=== PATIENT | male | born 1955 | race Caucasian/White ===

== ENCOUNTER 2020-10-06 10:43 | Day surgery (SDC) | payer MEDICARE ==
[~2020-10-06] VITALS: Ht 180.3 cm; Wt 122.4 kg
[2020-10-06] MEDS ORDERED: dextrose ORAL solution 15 GM/59 ML bottle PO PRN ×2 (11:15)
[2020-10-06] MEDS ORDERED: MESSAGE TO PHARMACY PO ONE (11:15)
[2020-10-06] MEDS ORDERED: diphenhydrAMINE 25mg capsule PO PRN (11:15)
[2020-10-06] MEDS ORDERED: normal saline 1,000 ML IV SCH (11:15)
[2020-10-06] MEDS ORDERED: LORazepam 0.5 MG tablet PO PRN (11:15)
[2020-10-06] MEDS ORDERED: glucagon, human recombinant 1mg kit SUBCUT PRN (11:15)
[2020-10-06] MEDS ORDERED: dextrose 50%-water 50ml dispensing syringe IV PRN ×2 (11:15)
[2020-10-06] MEDS ORDERED: nitroGLYCERIN 0.4mg SUBLingual tab SL PRN (11:15)
[2020-10-06] MEDS ORDERED: insulin regular, human U-100 3ml vial - multi-dose SQ SCH (11:15)
[2020-10-06] MEDS ORDERED: insulin Lispro (HumaLOG) vial - multi-dose SQ SCH (11:15)
[2020-10-06 11:34] VITALS: BP 146/65
[2020-10-06] MEDS ORDERED: GLIP5TAB13 PO (11:43)
[2020-10-06] MEDS ORDERED: ALLO100T PO (11:43)
[2020-10-06] MEDS ORDERED: LISI10TA4 PO (11:43)
[2020-10-06] MEDS ORDERED: METO50TA16 PO (11:43)
[2020-10-06] MEDS ORDERED: METF-438 PO (11:43)
[2020-10-06] MEDS ORDERED: ATOR-2 PO (11:43)
[2020-10-06 11:51] LABS: BASOPHILS # (AUTO) 0.1 X10'3 (0-0.2); BASOPHILS % (AUTO) 0.9 % (0-1); EOSINOPHILS # (AUTO) 0.3 X10'3 (0-0.9); HEMOGLOBIN 11.5 g/dl (14.0-17.9); LYMPHOCYTES # (AUTO) 1.4 X10'3 (1.1-4.8); LYMPHOCYTES % (AUTO) 24.9 % (21-51); MEAN CORPUSCULAR HEMOGLOBIN 32.1 PG (27.0-31.0); MEAN CORPUSCULAR HGB CONC 33.8 g/dL (33.0-36.5); MEAN PLATELET VOLUME 7.8 FL (7.4-10.4); MONOCYTES # (AUTO) 0.5 X10'3 (0-0.9); MONOCYTES % (AUTO) 8.6 % (2-12); NEUTROPHILS # (AUTO) 3.3 X10'3 (1.8-7.7); NEUTROPHILS % (AUTO) 60.6 % (42-75); PLATELET COUNT 281 X10'3 (140-440); RED BLOOD COUNT 3.58 X10'6 (4.70-6.10); RED CELL DISTRIBUTION WIDTH 13.6 % (11.5-14.5); WHITE BLOOD COUNT 5.5 X10'3 (4.5-11.0)
[2020-10-06 11:58] LABS: ALBUMIN 3.9 G/DL (3.4-5.0); ANION GAP 11 (8-16); BLOOD UREA NITROGEN 22 MG/DL (7-18); BUN/CREATININE RATIO 18.8 (5.4-32.0); CHLORIDE 106 MMOL/L (99-107); CREATININE 1.17 MG/DL (0.60-1.10); GLUCOSE 206 MG/DL (70-104); POTASSIUM 4.2 MMOL/L (3.5-5.1); SODIUM 139 MMOL/L (135-145); eGFR 62 ML/MIN
[2020-10-06 12:07] LABS: HEMOGLOBIN A1C 7.2 % (4.5-6.2)
[2020-10-06 12:08] LABS: PARTIAL THROMBOPLASTIN TIME 23 SECONDS (22-32)
[2020-10-06] MEDS ORDERED: iohexol 350 MG/ML 50ML vial IV ONE (13:30)
[2020-10-06] MEDS ORDERED: LIDOcaine 1% (10mg/ml)w/preservative injection 20ml MDV ONE (13:30)
[2020-10-06] MEDS ORDERED: fentaNYL/PF 50MCG/1 ML 2ML syringe ONE (13:30)
[2020-10-06] MEDS ORDERED: iohexol 350MG/ML 100ml bottle IV ONE (13:30)
[2020-10-06] MEDS ORDERED: midazolam 2 mg/2 ml injection ONE ×2 (13:30→13:51)
[2020-10-06 14:28] VITALS: BP 119/60
[2020-10-06] MEDS ORDERED: OXAZEpam 15mg capsule PO PRN (15:05)
[2020-10-06] MEDS ORDERED: HYDROcodone/acetaminophen 10/325mg tab PO PRN (15:05)
[2020-10-06] MEDS ORDERED: HYDROcodone/acetaminophen 5mg/325mg tablet PO PRN (15:05)
[2020-10-06] MEDS ORDERED: normal saline 1000ml 1,000 ML IV SCH (15:05)
[2020-10-06] MEDS ORDERED: ondansetron/PF 4mg/2ml inj IV PRN (15:05)
[2020-10-06] MEDS ORDERED: proCHLORperazine 10 MG/2 ml inj IV PRN (15:05)
[2020-10-06] MEDS ORDERED: acetaminophen 325mg tablet PO PRN (15:30)
[2020-10-06] MEDS ORDERED: insulin glargine (Lantus) pen - multi-dose SQ SCH (21:00)
== END 2020-10-06 20:10 | disposition home or self-care (01) ==
LOC: SSTAY O 10:43
PROVIDERS: ATTEND Internal Medicine Cardiovascular Disease
DX: I25.118 Atherosclerotic heart disease of native coronary artery with other forms of angina pectoris (principal); I10 Essential (primary) hypertension; E78.5 Hyperlipidemia, unspecified; E11.9 Type 2 diabetes mellitus without complications; M19.90 Unspecified osteoarthritis, unspecified site; G47.33 Obstructive sleep apnea (adult) (pediatric); E66.9 Obesity, unspecified; Z68.35 Body mass index [BMI] 35.0-35.9, adult; Z87.891 Personal history of nicotine dependence; Z79.899 Other long term (current) drug therapy; Z98.84 Bariatric surgery status; Z79.01 Long term (current) use of anticoagulants
CPT/HCPCS: 36415; 71046; 80048; 82948; 83036; 85025; 85610; 85730; 93005; 93458; 99152; 99153; C1760; C1769; J1644; J1815; J2001; J2250; J3010; J7030; Q0163; Q9967; A4620; A6258

== ENCOUNTER 2021-05-23 06:20 | Day surgery (SDC) | payer MEDICARE ==
[2021-05-23] VITALS (9 sets, daily range): BP systolic 121–141; BP diastolic 56–77
[~2021-05-23] VITALS: Ht 180.3 cm; Wt 123.4 kg
[~2021-05-23 06:20] MED LIST: ALLO100T PO; ATOR-2 PO; GLIP5TAB13 PO; LISI10TA27 PO; METF-438 PO; METO50TA16 PO
[2021-05-23] MEDS ORDERED: normal saline 1000ml 1,000 ML IV PRN (06:45)
--- NOTE | 2021-05-23 07:06 | NUR ---
Pt arrived with PICC line, right upper arm. DRSG CD&I, no s/s of infection. New order given to use PICC line for procedure per LEEROY Eng.
[2021-05-23] MEDS ORDERED: [UNRECOGNIZED DRUG - CODE] PO (07:16)
[2021-05-23] MEDS ORDERED: PIOG30TA71 PO (07:16)
[2021-05-23] MEDS ORDERED: CETI-90 PO (07:16)
--- NOTE | 2021-05-23 08:15 | NUR ---
Problems reprioritized. Patient report given, questions answered & plan of care reviewed with Suhail GALVAN.
[2021-05-23] MEDS ORDERED: midazolam 1 mg/ML 2ml injection ONE ×2 (08:45→09:41)
[2021-05-23] MEDS ORDERED: LIDOcaine 1%/PF 5ML 10 MG/ML VIAL ONE (08:45)
[2021-05-23] MEDS ORDERED: fentaNYL/PF 50MCG/1 ML 2ML syringe ONE ×2 (08:46→10:07)
[2021-05-23] MEDS ORDERED: iohexol 300mg/ml 100ml inj. ONE (08:46)
[2021-05-23] MEDS ORDERED: heparin 1,000 UNITS/NS 500ml 500 ML ONE (08:46)
[2021-05-23 09:04] LABS: ALBUMIN 3.9 G/DL (3.4-5.0); ANION GAP 12 (8-16); BLOOD UREA NITROGEN 29 MG/DL (7-18); BUN/CREATININE RATIO 19.1 (5.4-32.0); CALCIUM 8.9 MG/DL (8.5-10.1); CHLORIDE 110 MMOL/L (99-107); CREATININE 1.52 MG/DL (0.60-1.10); GLUCOSE 87 MG/DL (70-104); POTASSIUM 4.9 MMOL/L (3.5-5.1); SODIUM 144 MMOL/L (135-145); TOTAL CARBON DIOXIDE 22.2 MMOL/L (24-32); eGFR 46 ML/MIN
[2021-05-23] MEDS ORDERED: heparin 1,000unit/ml 10ml vial 10 ML ONE (10:12)
[2021-05-23] MEDS ORDERED: normal saline 1000ml 1,000 ML IV SCH (11:25)
== END 2021-05-23 14:00 | disposition home or self-care (01) ==
LOC: SSTAY O 06:20
PROVIDERS: ATTEND Radiology Vascular & Interventional Radiology
DX: E11.51 Type 2 diabetes mellitus with diabetic peripheral angiopathy without gangrene (principal); I70.213 Atherosclerosis of native arteries of extremities with intermittent claudication, bilateral legs; E11.69 Type 2 diabetes mellitus with other specified complication; M86.9 Osteomyelitis, unspecified; I10 Essential (primary) hypertension; Z98.84 Bariatric surgery status; Z98.890 Other specified postprocedural states; Z90.49 Acquired absence of other specified parts of digestive tract; Z87.442 Personal history of urinary calculi; Z98.52 Vasectomy status; Z88.2 Allergy status to sulfonamides; Z88.8 Allergy status to other drugs, medicaments and biological substances; Z79.84 Long term (current) use of oral hypoglycemic drugs; Z79.899 Other long term (current) drug therapy
CPT/HCPCS: 36415; 37224; 75630; 80048; 99152; 99153; C1725; C1760; C1769; C1894; J1644; J2250; J3010; J7030; Q9967; A6213

== ENCOUNTER 2021-06-22 06:50 | Day surgery (SDC) | payer MEDICARE ==
[2021-06-21 11:38] LABS: BASOPHILS # (AUTO) 0.1 X10'3 (0-0.2); BASOPHILS % (AUTO) 0.9 % (0-1); EOSINOPHILS # (AUTO) 0.3 X10'3 (0-0.9); HEMATOCRIT 37.1 % (42.0-52.0); HEMOGLOBIN 12.5 g/dl (14.0-17.9); LYMPHOCYTES # (AUTO) 1.3 X10'3 (1.1-4.8); LYMPHOCYTES % (AUTO) 20.1 % (21-51); MEAN CORPUSCULAR HEMOGLOBIN 31.7 PG (27.0-31.0); MEAN CORPUSCULAR HGB CONC 33.7 g/dL (33.0-36.5); MEAN CORPUSCULAR VOLUME 93.9 FL (78-98); MEAN PLATELET VOLUME 8.2 FL (7.4-10.4); MONOCYTES # (AUTO) 0.5 X10'3 (0-0.9); MONOCYTES % (AUTO) 7.8 % (2-12); NEUTROPHILS # (AUTO) 4.2 X10'3 (1.8-7.7); NEUTROPHILS % (AUTO) 66.2 % (42-75); PLATELET COUNT 230 X10'3 (140-440); RED BLOOD COUNT 3.95 X10'6 (4.70-6.10); RED CELL DISTRIBUTION WIDTH 14.6 % (11.5-14.5); WHITE BLOOD COUNT 6.3 X10'3 (4.5-11.0)
[2021-06-21 11:49] LABS: PARTIAL THROMBOPLASTIN TIME 25 SECONDS (22-32)
[2021-06-21 11:54] LABS: ALBUMIN 3.9 G/DL (3.4-5.0); ANION GAP 12 (8-16); BLOOD UREA NITROGEN 39 MG/DL (7-18); BUN/CREATININE RATIO 25.5 (5.4-32.0); CALCIUM 9.1 MG/DL (8.5-10.1); CHLORIDE 107 MMOL/L (99-107); CREATININE 1.53 MG/DL (0.60-1.10); GLUCOSE 174 MG/DL (70-104); POTASSIUM 5.1 MMOL/L (3.5-5.1); SODIUM 140 MMOL/L (135-145); TOTAL CARBON DIOXIDE 20.6 MMOL/L (24-32); eGFR 46 ML/MIN
[~2021-06-22] VITALS: Ht 180.3 cm; Wt 124.0 kg
[2021-06-22] VITALS (13 sets, daily range): BP systolic 126–157; BP diastolic 50–69
[~2021-06-22 06:50] MED LIST changes: +CETI-90 PO; +PIOG30TA71 PO; +[UNRECOGNIZED DRUG - CODE] PO
[2021-06-22] MEDS ORDERED: diphenhydrAMINE 25mg capsule PO PRN (07:20)
[2021-06-22] MEDS ORDERED: sodium bicarbonate (8.4%) inj. 150 ML in dextrose 5%-water 1,000 ML IV ONE ×2 (07:20→11:05)
[2021-06-22] MEDS ORDERED: LORazepam 0.5 MG tablet PO PRN (07:20)
[2021-06-22] MEDS: acetylcysteine 200 MG/ml 4ml vial PO PRN ×2 (07:46→11:22)
[2021-06-22] MEDS ORDERED: NITR0.4T51 SL (08:03)
[2021-06-22] MEDS ORDERED: CLOP75TA34 PO (08:03)
[2021-06-22] MEDS ORDERED: OMEG1CAP61 PO (08:03)
[2021-06-22] MEDS ORDERED: GLUC15006 PO (08:03)
[2021-06-22] MEDS ORDERED: TURM500C4 PO (08:03)
[2021-06-22] MEDS ORDERED: CYCL-1 PO (08:03)
[2021-06-22] MEDS ORDERED: NITR1PAT63 TD (08:03)
[2021-06-22] MEDS ORDERED: fentaNYL/PF 50MCG/1 ML 2ML syringe ONE (08:20)
[2021-06-22] MEDS ORDERED: midazolam 1 mg/ML 2ml injection ONE (08:20)
[2021-06-22] MEDS ORDERED: LIDOcaine 1% (10mg/ml)w/preservative injection 20ml MDV ONE (08:20)
[2021-06-22] MEDS ORDERED: iohexol 350 MG/ML 50ML vial IV ONE (08:20)
[2021-06-22] MEDS ORDERED: iohexol 350MG/ML 100ml bottle IV ONE (08:21)
[2021-06-22] MEDS ORDERED: iohexol 350 MG/1 ML 200ml bottle ONE (08:39)
[2021-06-22] MEDS ORDERED: nitroGLYCERIN-Tridil 50MG/D5W 250 ML IV ONE (08:41)
[2021-06-22] MEDS ORDERED: heparin 1,000unit/ml 10ml vial 10 ML ONE (08:41)
[2021-06-22] MEDS ORDERED: verapamil 2.5 mg/ml inj IV ONE (08:41)
[2021-06-22] MEDS ORDERED: heparin 25,000 UNIT/250ml bag 250 ML IV ONE (08:41)
[2021-06-22] MEDS ORDERED: clopidogrel 300mg tablet ONE ×2 (10:20→10:23)
== END 2021-06-22 19:00 | disposition home or self-care (01) ==
LOC: SSTAY O 06:50
PROVIDERS: ATTEND Internal Medicine Cardiovascular Disease
DX: I25.119 Atherosclerotic heart disease of native coronary artery with unspecified angina pectoris (principal); I25.2 Old myocardial infarction; I10 Essential (primary) hypertension; E78.5 Hyperlipidemia, unspecified; E11.40 Type 2 diabetes mellitus with diabetic neuropathy, unspecified; M85.80 Other specified disorders of bone density and structure, unspecified site; E66.9 Obesity, unspecified; Z68.37 Body mass index [BMI] 37.0-37.9, adult; F17.211 Nicotine dependence, cigarettes, in remission; Z79.84 Long term (current) use of oral hypoglycemic drugs; Z79.899 Other long term (current) drug therapy; Z79.01 Long term (current) use of anticoagulants; Z98.890 Other specified postprocedural states; Z98.84 Bariatric surgery status; Z95.5 Presence of coronary angioplasty implant and graft; Z98.52 Vasectomy status; Z87.442 Personal history of urinary calculi; Z89.422 Acquired absence of other left toe(s); Z88.8 Allergy status to other drugs, medicaments and biological substances; Z88.2 Allergy status to sulfonamides; Z82.49 Family history of ischemic heart disease and other diseases of the circulatory system
CPT/HCPCS: 36415; 76937; 80048; 85025; 85347; 85610; 85730; 93005; 93458; 99152; 99153; C1725; C1751; C1769; C1874; C1894; C9600; J1644; J2001; J2250; J3010; Q0163; Q9967; A4620; A6258; J3490